=== PATIENT | female | born 1990 | race Caucasian/White ===

== ENCOUNTER 2017-02-22 14:48 | Inpatient (IN) | payer OTHER ==
[~2017-02-22] VITALS: Ht 160 cm; Wt 71.0 kg
[2017-02-22 17:18] LABS: BASOPHIL % 0.1 % (0-2); RED CELL DISTRIBUTION WIDTH 12.3 % (11.5-14.5)
[2017-02-22 17:20] LABS: CALCIUM 8.9 mg/dL (8.5-10.1); CARBON DIOXIDE 27.4 mmol/L (21-32); CHLORIDE SERUM 105 mmol/L (98-107); CREATININE SERUM 0.6 mg/dL (0.6-1.0); GFR1 > 60 mL/min; GLUCOSE SERUM 75 mg/dL (74-106); PLATELET COUNT 432 x10^3mcL (130-400); SODIUM SERUM 140 mmol/L (136-145)
[2017-02-22 17:26] LABS: ALBUMIN 3.7 g/dL (3.4-5.0); ALKALINE PHOSPHATASE 53 U/L (46-116); ALT/SGPT 33 U/L (14-59); AST/SGOT 21 U/L (15-37); BILIRUBIN TOTAL 0.35 mg/dL (0.20-1.00); TOTAL PROTEIN, SERUM 7.2 g/dL (6.4-8.2)
[2017-02-22 17:36] LABS: LIPASE 5384 IU/L (73-393)
[2017-02-22 18:47] VITALS: BP 138/78
[2017-02-22 18:49] VITALS: Ht 160 cm; Wt 71.0 kg
[2017-02-22 19:14] LABS: FREE T4 0.94 ng/dL (0.76-1.46); FREE THYROXINE INDEX 2.7 ug/dL (1.4-4.5); T3 TOTAL 1.32 ng/mL; T4(THYROXINE) 7.8 ug/dL (4.7-13.3)
[2017-02-22 20:10] LABS: CHOLESTEROL/HDL RATIO 2.9
[2017-02-22 21:17] LABS: microscopic required? NO
[2017-02-22 21:21] LABS: UA SPECIFIC GRAVITY 1.015 (1.005-1.035); urine erythrocyte NEGATIVE (NEGATIVE)
[2017-02-22 21:27] VITALS: BP 114/68
[2017-02-22 21:28] LABS: AMPHETAMINE QUAL UR NONE DETECTED (NEG <=1000)
[2017-02-23 05:54] VITALS: BP 100/63
[2017-02-23 06:23] LABS: CALCIUM 8.2 mg/dL (8.5-10.1); CHLORIDE SERUM 108 mmol/L (98-107); CREATININE SERUM 0.6 mg/dL (0.6-1.0); GFR1 > 60 mL/min; GLUCOSE SERUM 71 mg/dL (74-106); MAGNESIUM 2.1 mg/dL (1.8-2.4); PHOSPHOROUS 3.8 mg/dL (2.5-4.9); POTASSIUM SERUM 3.9 mmol/L (3.5-5.1); SODIUM SERUM 142 mmol/L (136-145)
[2017-02-23 06:27] LABS: BASOPHIL % 0.3 % (0-2); RED CELL DISTRIBUTION WIDTH 12.5 % (11.5-14.5)
[2017-02-23 07:06] LABS: PLATELET COUNT 425 x10^3mcL (130-400)
[2017-02-23 10:00] VITALS: BP 114/74
[2017-02-23 18:19] VITALS: BP 105/61
[2017-02-23 20:39] VITALS: BP 101/66
[2017-02-24 06:10] VITALS: BP 104/59
[2017-02-24 06:19] LABS: BASOPHIL % 0.2 % (0-2); RED CELL DISTRIBUTION WIDTH 12.4 % (11.5-14.5)
[2017-02-24 06:30] LABS: ALBUMIN 3.5 g/dL (3.4-5.0); CALCIUM 8.3 mg/dL (8.5-10.1); CARBON DIOXIDE 19.8 mmol/L (21-32); CHLORIDE SERUM 105 mmol/L (98-107); CREATININE SERUM 0.6 mg/dL (0.6-1.0); GFR1 > 60 mL/min; POTASSIUM SERUM 4.3 mmol/L (3.5-5.1); SODIUM SERUM 138 mmol/L (136-145)
[2017-02-24 06:33] LABS: GLUCOSE SERUM 52 mg/dL (74-106); PLATELET COUNT 436 x10^3mcL (130-400)
[2017-02-24 09:40] VITALS: BP 116/72
[2017-02-24 11:28] LABS: ALBUMIN 3.4 g/dL (3.4-5.0); ALKALINE PHOSPHATASE 53 U/L (46-116); ALT/SGPT 32 U/L (14-59); AST/SGOT 18 U/L (15-37); BILIRUBIN TOTAL 0.35 mg/dL (0.20-1.00); CALCIUM 8.2 mg/dL (8.5-10.1); CHLORIDE SERUM 107 mmol/L (98-107); CREATININE SERUM 0.7 mg/dL (0.6-1.0); GFR1 > 60 mL/min; GLUCOSE SERUM 129 mg/dL (74-106); POTASSIUM SERUM 4.2 mmol/L (3.5-5.1); SODIUM SERUM 138 mmol/L (136-145); TOTAL PROTEIN, SERUM 6.5 g/dL (6.4-8.2)
[2017-02-24 13:09] VITALS: BP 113/67
[2017-02-24 14:49] VITALS: BP 113/67
[2017-02-24 15:25] LABS: AMYLASE 43 U/L (25-115); LIPASE 120 IU/L (73-393)
== END 2017-02-24 16:00 | disposition home or self-care (01) | DRG 282 ==
LOC: ED 14:48 → DU 17:54 → MU 17:54 → DU 18:30 → MU 02-23 10:03
PROVIDERS: Emergency Medicine; Family Medicine; ADMIT Family Medicine
DX: K85.90 Acute pancreatitis without necrosis or infection, unspecified (principal); E87.8 Other disorders of electrolyte and fluid balance, not elsewhere classified; K76.0 Fatty (change of) liver, not elsewhere classified; E83.51 Hypocalcemia; D47.3 Essential (hemorrhagic) thrombocythemia; Z68.27 Body mass index [BMI] 27.0-27.9, adult
CPT/HCPCS: 80307; 83880; 84439; G0480; J0780; J2270; J2405; J7030; Q0092